=== PATIENT | female | born 2000 | race Asian ===

== ENCOUNTER 2021-11-04 18:18 | Emergency (ER) | payer OTHER, SELFPAY ==
--- NOTE | ~2021-11-04 | XR_ITS ---
EXAMINATION: XR forearm RT 2V INDICATION: Right forearm pain TECHNIQUE: Two views of the right forearm are obtained on four radiographs. COMPARISON: None available FINDINGS: There is no fracture, dislocation, or subluxation. The bones, soft tissues, and joint space s are normal. IMPRESSION: 1. No acute osseous abnormality. Reviewed, dictated and finalized at location [facility] [employer]
[2021-11-04 18:21] VITALS: BP 130/55; PULSE 80; RESP 20; TEMP 37; O2SAT 100
--- NOTE | 2021-11-04 20:50 | ED.GENADULT ---
HPI - General Adult General Chief complaint: Extremity Injury, Upper Stated complaint: R wrist injury Time Seen by Provider: 11/04/21 20:15 Source: patient Mode of arrival: ambulatory Limitations: no limitations History of Present Illness HPI narrative: Patient presents for evaluation of right forearm pain. She indicates she was walking down steps today when she slipped, her friend caught her by the right arm. Patient did not actually hit the ground. Since that time she has noted pain and swelling to the proximal right forearm. States the pain is constant, without descriptive quality, rated 8 out of 10 in severity. No radicular component. No paresthesias. Movement makes her pain worse. She is right-hand dominant. No additional complaints or concerns. Related Data Allergies Allergy/AdvReac Type Severity Reaction Status Date / Time No Known Allergies Allergy Verified 11/04/21 20:36 Review of Systems Review of Systems: CONSTITUTIONAL: Denies fever, chills, or sweats. EYES: Denies visual changes, redness, or discharge. ENT: Denies rhinorrhea, congestion, sore throat, or otalgia. CARDIOVASCULAR: Denies chest pain, palpitations, or edema. RESPIRATORY: Denies cough or dyspnea. GASTROINTESTINAL: Denies abdominal pain, nausea, vomiting, or diarrhea. GENITOURINARY: Denies dysuria or hematuria. SKIN: Denies rash or itching. MUSCULOSKELETAL: Reports pain in the right forearm. Denies back pain, joint pain NEUROLOGIC: Denies headache, numbness, dizziness, or weakness. PSYCHIATRIC: Denies anxiety or depression. [facility] Past Medical History Medical History (Updated 11/04/21 @ 22:00 by SYED Marroquin, ) No pertinent past medical history Surgical History Surgical History No pertinent past surgical history Family History Family History Mother No pertinent past medical history Social History Social History Smoking status: Never smoker Alcohol intake: current Alcohol use details: Social Substance use: never Living arrangements: with roommate(s) Occupation/Education: student Gender identity (if verbalized by the patient): Female Spiritual care concerns: No Exam Narrative: GENERAL: Well-appearing, well-nourished, and in no acute distress. HEAD: Normocephalic, atraumatic. EYES: PERRLA and EOMI. ENT: Nares clear, no rhinorrhea or epistaxis. Mucous membranes moist. Oropharynx without tonsillar hypertrophy exudate or other lesions. Bilateral TMs pearly lisa nonbulging NECK: Supple. No adenopathy or masses. No carotid bruits or JVD CHEST: Clear to auscultation. No respiratory distress. No wheezes rales or rhonchi HEART: Regular rate and rhythm. No murmur heard. Normal peripheral pulses. ABDOMEN: Soft, nontender, nondistended, normal active bowel sounds. EXTREMITIES: Trace swelling noted of proximal right forearm with associated tenderness. Patient refuses to perform active flexion extension of the right elbow and pronation supination of the right forearm secondary to pain. 4/5 hand printer slotter helper strength on the right. 5/5 hand printer slotter helper strength on the left. SKIN: Warm, dry, no rash. NEURO: No focal deficits. Alert and oriented x3. PSYCH: Normal mood and affect. Course Course Emergency Course: This is a 22-year-old female present with complaints of pain in the proximal right forearm after an injury earlier today. X-ray was negative for fracture. Given [place] in the emergency department with some improvement in her pain thereafter. Was advised to follow-up with orthopedics. We will provide her with a sling. She should return for worsening symptoms. Patient agreed with plan of care Vital Signs Vital signs: Vital Signs Temperature 37.0 C 11/04/21 18:21 Pulse Rate 80 11/04/21 18:21 Respiratory Rate 20 11/04/21 18:21 Blood Pressure 130
[2021-11-04] MEDS: HYDROcodone/acetaminophen (*CRX) 5-325 MG TABLET 2 TAB PO (21:37)
[2021-11-04 21:39] VITALS: BP 110/53; PULSE 84; RESP 16; O2SAT 100
== END 2021-11-04 22:12 | disposition home or self-care (01) ==
PROVIDERS: Emergency Provider Nurse Practitioner; PCP Emergency Medicine
DX: S56.911A Strain of unspecified muscles, fascia and tendons at forearm level, right arm, initial encounter (principal); W10.9XXA Fall (on) (from) unspecified stairs and steps, initial encounter
CPT/HCPCS: 73090; 81025; 99283; A4565; A9270